=== PATIENT | female | born 1995 | race Caucasian/White ===

== ENCOUNTER 2018-05-11 20:43 | Emergency (ER) | payer BC ==
[2018-05-11 20:46] VITALS: BP 140/87
--- NOTE | 2018-05-11 20:48 | ER Report ---
History and Physical Time Seen By MD: 20:45 HPI/ROS CHIEF COMPLAINT: Missing contact lens in left eye HISTORY OF PRESENT ILLNESS: 22-year-old female presents ambulatory to the ER complaining of missing left contact lens. She thinks it stay here due to her cornea. She's tried for several hours to get it out with flushing it was sailing. Patient states she wears daily lenses and takes them out every night. Reports has been nothing unusual in her routine. Allergies: Coded Allergies: No Known Drug Allergies (Unverified , 05/11/18) Home Meds No Active Prescriptions or Reported Meds Reviewed Nurses Notes: Yes Old Medical Records Reviewed: Yes Constitutional Vital Sign - Last 24 Hours 05/11/18 20:46 Temp 98.0 Pulse 101 Resp 12 B/P (MAP) 140/87 Pulse Ox 93 O2 Delivery Room Air Physical Exam General appearance: Alert no distress. HEENT: Close examination of the left eye reveals no apparent contact or corneal abrasion. Foreseen is instilled, as well as proparacaine drops. All different axis is of the This are evaluated. There is no retained contact noted. Close examination of the cornea reveals no retained contact lens. There are some superficial corneal abrasions. Respiratory: Chest is non tender, lungs are clear to auscultation. Cardiac: Regular rate and rhythm DIFFERENTIAL DIAGNOSIS: After history and physical exam differential diagnosis was considered for contact keratitis, corneal abrasion, missing contact lens, eye foreign body Medical Decision Making ED Course/Re-evaluation ED Course Patient was admitted to an examination room. H&P was done. The differential diagnoses was considered. Patient's eye was anesthetized with proparacaine drops foreseen contrast dye was instilled. Extensive evaluation of the eye revealed no apparent retained contact for foreign body. There were some superficial corneal abrasions and edema over the cornea. Patient will be disch arged home on Tobrex drops twice a day. She is advised to follow-up with Dr. Wesley Epperson ophthalmology if unimproved in 2 days. She is advised to not wear any contacts in this eye for 3 days. 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 Jamaal Stevens ophthalmology if unimproved in 2 days LEAH LAN DO May 11, 2018 20:48
[2018-05-11] MEDS ORDERED: PROPARACAINE 0.5% OP 15ML BTL OS ONE (21:00)
[2018-05-11] MEDS ORDERED: FLUORESCEIN SOD 1 MG 1 EA STRP OS ONE (21:00)
[2018-05-11] MEDS ORDERED: TOBRAMYCIN/DEX OP SUSP 2.5 ML OS ONE (21:20)
== END 2018-05-11 21:28 | disposition home or self-care (01) ==
LOC: ER 20:55
DX: H18.822 Corneal disorder due to contact lens, left eye (principal)
CPT/HCPCS: 99282